=== PATIENT | female | born 1935 | race Caucasian/White ===

== ENCOUNTER 2017-08-13 17:19 | Emergency (ER) | payer MEDICARE, OTHER ==
[2017-08-13] MEDS ORDERED: Clindamycin HCl 150 MG Cap PO ONE (19:11)
--- NOTE | 2017-08-16 09:24 | ER ---
DATE SEEN: 08/13/2017 TIME SEEN: The patient was seen at 1730 hours. HISTORY OF PRESENT ILLNESS: This 82-year-old presents with a history of soreness on the right eye. I was called by Alexis Vallejo, the nurse practitioner, in the clinic this afternoon because he was concerned about potential periorbital cellulitis. She had mild recent confusion, red eye, and this has been present since 08/11/2017. She complained of mild sore throat on 08/08/2017. This was accompanied by slight cough. She has trace of pain with moving her eye [id number]. Does not have any intra-ocular pain. Denies any change in vision. PAST MEDICAL HISTORY: Significant for dementia - cognitive impairment; carcinoid resection; bladder cancer resection; varicose vein prominence; cerebrovascular disease - possible mini strokes, but not documented paresis or weakness; dysthymia; depression; restless legs; status post appendectomy and cholecystectomy; RONALD-BSO; hypertension; and fibromyalgia. REVIEW OF SYSTEMS: HEENT: Negative. Denies compromised vision. Not had cataract surgery. Denies difficulty swallowing. She is edentulous. No history of carotid artery disease or neck discomfort or neck pain. CARDIORESPIRATORY: Negative. No chest pain. No irregular heartbeat. No shortness of breath, except she gets mild shortness of breath and dyspnea on exertion. GI: No ev of acid peptic disease. She is noted to have ulcers. She has mild reflux. No constipation, blood in the stool, black tarry stool, or change of bowels normal. No incontinence of urine. She has this controlled by solifenacin, so she has mild incontinence, but this is controlled with this medicine. PSYCHOLOGIC: She lives alone. Has 1 daughter. No other helpers or people to check and the daughter checks on her frequently. The daughter is her sole caregiver. She is not in assisted living. Review of systems is otherwise negative. PHYSICAL EXAMINATION: VITAL SIGNS: Blood pressure 123/71, heart rate 93 and regular, respirations 18, oxygen saturation 93%. GENERAL: The patient is mildly overweight. Sitting in a wheelchair. She gets about using a wheelchair. She is not cognitively intact. She asks inappropriate questions and does not respond to questions when asked. I did not do a full mini-mental status, but has compromised moderate dementia. HEENT: On face examination, she has traumatic erythema and mild swelling in the right lower orbit. Sclerae are injected. Pupils do react to light. EOMs are normal. No pain with moving her eyes. She has had trace discomfort. Palpation of the eyes is without pain. Pharynx is without abnormality. Gag in place. Tongue, uvula midline. NECK: No bruits. No masses. No thyromegaly. No tracheal deviation or tug. LUNGS: Clear without rales, rhonchi, or wheezes. HEART: S1, S2. No irregular rate and rhythm. ABDOMEN: Soft. No guarding. No abdominal discomfort. She has infraumbilical scar that is healed. No hernia demonstrated. EXTREMITIES: Lower extremities, mild peripheral neuropathy sensitivity to palpation. Trace of edema. Dorsalis pedis intact. NEUROLOGIC: Deep tendon reflexes hypoactive, upper and lower extremities. Cranial nerves 2 through 12 intact. Hearing, decreased. Vision is slightly decreased with her glasses. Gait not tested. DIAGNOSTIC DATA: CAT scan was performed. There was infraorbital preseptal inflammation. There is no evidence for orbital cellulitis. Cristel ahs a mild maxillary-sinus involvement with air-fluid levels and cyst demonstrated, more notably in the right maxillary . Lab work was obtained at the clinic. She had 12,000 white count with 65 PMNs. Hemoglobin was negative. Chest x-ray was negative in the clinic. ASSESSMENT: Preseptal cellulitis, dermis and skin. PLAN: Be treated with clindamycin 300 mg t.i.d. for 7 days. Tylenol and ibuprofen as needed for pain. Warm moist packs 4 times a day. Follow up with the doctor in 7 days or earlier if worse or increased pain or discomfort. Daughter will have to be more vigilant about attending to the patient's needs to make sure she gets medicine. Apparently, this is a difficulty. If necessary, she may need to be hospitalized, but this is an extraordinary expense for someone, who could be helped by home health care. Daughter could enroll home health care to facilitate care if necessary. The Social Service is not available today for this discussion, but that is something could be arranged and discussed with the social welfare administrator on Wednesday. OTHER DIAGNOSES: 1. Dementia. 2. Borderline capability to manage herself at home. 3. Hypertension. 4. Restless legs. 5. Urine incontinence, stabilized with solifenacin. 6. Decreased hearing. 7. Status post appendectomy, cholecystectomy, bladder cancer treatment. 8. Status post left wrist fracture. 9. Obesity, 12 pounds loss in the last month or so. 10.Fibromyalgia with generalized lower back discomfort that is baseline. /[id number] DAMARIS/SADI MTDD
== END 2017-08-13 19:30 | disposition home or self-care (01) ==
LOC: FB.ED 17:19
DX: L03.213 Periorbital cellulitis (principal); F03.90 Unspecified dementia, unspecified severity, without behavioral disturbance, psychotic disturbance, mood disturbance, and anxiety; E66.9 Obesity, unspecified; M79.7 Fibromyalgia; Z68.41 Body mass index [BMI] 40.0-44.9, adult; I10 Essential (primary) hypertension; R32 Unspecified urinary incontinence; Z90.49 Acquired absence of other specified parts of digestive tract
CPT/HCPCS: 70486; 99283; A9270

== ENCOUNTER 2017-10-01 02:23 | Inpatient (IN) | payer MEDICARE, OTHER ==
--- NOTE | 2017-10-01 04:02 | EDM.PDOC ---
ED HPI GENERAL MEDICAL PROBLEM - General Chief Complaint: General Stated Complaint: CONFUSION Time Seen by Provider: 10/01/17 03:50 Source of Information: Reports: Patient History Limitations: Reports: No Limitations - History of Present Illness INITIAL COMMENTS - FREE TEXT/NARRATIVE: Patient has a history of dementia and lives alone. She was found by police walking outside approximately two miles from home. Apparently this also occurred @1 week ago. The patient has no memory of either of these events. She presents to the ER with her daughter who states she was recently started on Aricept. Denies headache, chest pain, or shortness of breath. Onset: Today - Related Data Allergies Allergy/AdvReac Type Severity Reaction Status Date / Time codeine Allergy Abdominal Verified 08/13/17 17:41 Pain levofloxacin [From Levaquin] Allergy Abdominal Verified 08/13/17 17:41 Pain Home Meds: Home Meds Acetaminophen [Tylenol Extra Strength] 1,000 mg PO BID 08/13/17 [History] Cholecalciferol (Vitamin D3) [Vitamin D3] 5,000 units PO DAILY 08/13/17 [History ] Cyanocobalamin (Vitamin B-12) [B-12] 1,000 mcg PO DAILY 08/13/17 [History] Lisinopril 10 mg PO DAILY 08/13/17 [History] Mirtazapine 15 mg PO BEDTIME 08/13/17 [History] [place]-3 Fatty Acids [Maxepa] 1,000 mg PO BID 08/13/17 [History] Potassium Chloride 20 meq PO TID 08/13/17 [History] Solifenacin [Vesicare] 5 mg PO DAILY 08/13/17 [History] Donepezil [Aricept] 5 mg PO DAILY 10/01/17 [History] Past Medical History Cardiovascular History: Reports: Hypertension Gastrointestinal History: Reports: Hemorrhoids Genitourinary History: Reports: Renal Calculus, UTI, Recurrent SENIOR MEDIA DIRECTOR History: Reports: Neurological History: Reports: Other (See Below) Other Neuro History: Confusion. Psychiatric History: Reports: Dementia Endocrine/Metabolic History: Reports: Obesity/BMI 30+ Oncologic (Cancer) History: Reports: Bladder, Other (See Below) Other Oncologic History: Small bowel. - Past Surgical History GI Surgical History: Reports: Cholecystectomy, Other (See Below) Other GI Surgeries/Procedures: Bowel resection for CA. Female Surgical History: Reports: Hysterectomy Endocrine Surgical History: Reports: Thyroidectomy Social & Family History - Family History Family Medical History: Noncontributory - Tobacco Use Smoking Status *Q: Never Smoker - Caffeine Use Caffeine Use: Reports: Coffee - Alcohol Use Alcohol Use History: No ED ROS GENERAL - Review of Systems Review Of Systems: ROS reveals no pertinent complaints other than HPI. ED EXAM, GENERAL - Physical Exam Exam: See Below Exam Limited By: No Limitations General Appearance: Alert, WD/WN, No Apparent Distress Eye Exam: Bilateral Eye: EOMI, PERRL Ears: Normal External Exam Nose: Normal Inspection Throat/Mouth: Normal Inspection, No Airway Compromise Head: Atraumatic, Normocephalic Neck: Full Range of Motion Respiratory/Chest: No Respiratory Distress, Lungs Clear, Normal Breath Sounds Cardiovascular: Regular Rate, Rhythm, No Murmur GI/Abdominal: No Distention Back Exam: Full Range of Motion Extremities: Normal Range of Motion Neurological: Alert, No Motor/Sensory Deficits, Other (Oriented to person and place, not to time) Psychiatric: Normal Affect, Normal Mood Skin Exam: Warm, Dry, Intact EKG INTERPRETATION EKG Date: 10/01/17 Time: 04:04 Rhythm: NSR Rate (Beats/Min): 91 [place]: Normal P-Wave: Present QRS: Normal ST-T: Normal QT: Prolonged VA/PQ Interval: 179 Course - Vital Signs Last Recorded V/S: Last Vital Signs Temp 36.6 C 10/01/17 02:45 Pulse 108 H 10/01/17 02:45 Resp 18 10/01/17 02:45 BP 114/61 10/01/17 02:45 Pulse Ox 95 10/01/17 02:45 - Orders/Labs/Meds Orders: Active Orders 24 hr Category Date Time Status UA W/MICROSCOPIC [URIN] Stat Lab 10/01/17 02:50 Ordered Labs: Laboratory Tests 10/01/17 10/01/17 10/01/17 Range/Units 02:50 03:12 03:12 WBC 12.5 H (4.5-12.0) X10-3/uL RBC 4.47 (3.23-5.20) x10(6)uL Hgb 13.7 (11.5-15.5) g/dL Hct 40.3 (30.0-51.3) % MCV 90.2 (80-96) fL MCH 30.7 (27.7-33.6) pg MCHC 34.1 (32.2-35.4) g/dL RDW 12.4 (11.5-15.5) % Plt Count 432 H (125-369) X10(3)uL MPV 8.1 (7.4-10.4) fL Add Manual Diff Yes Neutrophils % (Manual) 70 (46-82) % Band Neutrophils % 5 (0-6) % Lymphocytes % (Manual) 15 (13-37) % Monocytes % (Manual) 8 (4-12) % Eosinophils % (Manual) 2 (0-5) % Sodium 139 (135-145) mmol/L Potassium 4.0 (3.5-5.3) mmol/L Chloride 102 (100-110) mmol/L Carbon Dioxide 26 (21-32) mmol/L BUN 20 H (7-18) mg/dL Creatinine 1.3 H (0.55-1.02) mg/dL Est Cr Clr Drug Dosing 33.00 mL/min Estimated GFR (MDRD) 39 L (>60) BUN/Creatinine Ratio 15.4 (9-20) Glucose 116 (80-116) mg/dL Calcium 9.4 (8.6-10.2) mg/dL Total Bilirubin 0.4 (0.1-1.3) mg/dL AST 19 (5-25) IU/L ALT 26 (12-36) U/L Alkaline Phosphatase 135 H (56-112) IU/L Total Protein 8.1 H (6.0-8.0) g/dL Albumin 3.3 (3.2-4.6) g/dL Globulin 4.8 g/dL Albumin/Globulin Ratio 0.7 Urine Color Yellow (YELLOW) Urine Appearance Slightly cloudy (CLEAR) Urine pH 6.0 (5.0-6.5) Ur Specific [place] 1.010 (1.010-1.025) Urine Protein Trace (NEGATIVE) mg/dL Urine Glucose (UA) Normal (NEGATIVE) mg/dL Urine Ketones Negative (NEGATIVE) mg/dL Urine Occult Blood Negative (NEGATIVE) Urine Nitrite Negative (NEGATIVE) Urine Bilirubin Negative (NEGATIVE) Urine Urobilinogen Normal (NEGATIVE) mg/dL Ur Leukocyte Esterase Negative (NEGATIVE) Urine RBC 0-5 (0) Urine WBC 0-5 (0) Ur Squamous Epith Cells Few H (NS,R,O) Urine Bacteria Few H (NS) Urine Mucus Few H (NS) - Re-Assessments/Exams Free Text/Narrative Re-Assessment/Exam: 10/01/17 04:11 The patient will need placement in an assisted living facility or usp. Her current living environment is unsafe. Daughter states she is unable to stay with her at this time. She therefore will be admitted to [facility], will consult secondary social studies teacher for placement. Departure - Departure Time of Disposition: 04:14 Disposition: Refer to Observation Condition: Good Clinical Impression: At risk for unsafe behavior Dementia Qualifiers: Dementia type: unspecified type Dementia behavioral disturbance: with behavioral disturbance Qualified Code(s): F03.91 - Unspecified dementia with behavioral disturbance - Discharge Information *PRESCRIPTION DRUG MONITORING PROGRAM REVIEWED*: No *COPY OF PRESCRIPTION DRUG MONITORING REPORT IN PATIENT DANIS: Not Applicable Referrals: Ishaan Thornton MD [Primary Care Provider] - - My Orders Last 24 Hours: My Active Orders 10/01/17 02:50 UA W/MICROSCOPIC [URIN] Stat - Assessment/Plan Last 24 Hours: My Active Orders 10/01/17 02:50 UA W/MICROSCOPIC [URIN] Stat
[2017-10-01] MEDS ORDERED: Sodium Chloride 0.9% 10 ML Syringe FLUSH PRN (04:08)
[2017-10-01] MEDS ORDERED: Sodium Chloride 0.9% 1,000 ML IV SCH (04:15)
[2017-10-01] MEDS: Sodium Chloride 0.9% 1,000 ML IV SCH ×2 (05:10→16:44)
[2017-10-01] MEDS: Acetaminophen 325 MG Tab PO PRN ×2 (05:12→21:49)
[2017-10-01] MEDS: Potassium Chloride 20 MEQ Tab.ER PO SCH ×3 (09:13→20:16)
[2017-10-01] MEDS: Lisinopril 10 MG Tab PO SCH (09:13)
--- NOTE | 2017-10-01 13:41 | PN ---
DATE SEEN: 10/01/2017 SUBJECTIVE: Cristel Love is an 82-year-old, female seen today. [place] [facility]. Daughter in the area. She presented with acute confusional episode, was 2 miles from her home, and was disorientated. She was seen in [facility] and admitted to hospital for treatment. DIAGNOSTIC STUDIES: Diagnostic studies of significance, white count 12,500, hemoglobin 13.7, and 432,000 platelets. Electrolytes significant for GFR of 39, BUN 20, and creatinine 1.3, mildly elevated alkaline phosphatase and urine without pathologic findings. No CT scan was performed. Overnight has been without complaints. Vital signs have been stable. Discharge planning in place. OBJECTIVE: VITAL SIGNS: 143/86, 144/86, 14, 98 degrees F, and 98% O2 saturation. GENERAL: Bright, alert, and awake, orientation was in question. NECK: Benign. Thyroid small. CHEST: Clear in all lung yuan. HEART: Regular without ectopy or murmur. ABDOMEN: Benign. NEURO: No focal neurologic event. Acute confusional state. PLAN: We will obtain CT head just for completeness, complementary care, and well being. Discharge plans under consideration. /[id number] SAHARA/SADI
--- NOTE | 2017-10-01 14:51 | CT ---
INDICATION: Acute confusion, wandering about, dementia. CT HEAD WITHOUT CONTRAST: Serial contiguous 2.5 and 5 mm sections were obtained through the brain without contrast, 10/01/2017, and compared with 12/24. Total exam DLP = 950.31 mGy-cm. There is some minimal frothy material in a left posterior ethmoidal air cell, which may represent a retention cyst. A similar finding is noted in the posterolateral aspect of the left sphenoidal air cell. Otherwise the paranasal sinuses were well-aerated. The mastoid air cells are unchanged and fairly well- aerated. Diminished bone density is noted, compatible with osteoporosis, with no other cranial abnormality. No significant shift of midline structures was seen. Ventricles are slightly prominent, as are sulci, compatible with a minimal degree of atrophy for this patients age. Calcifications are noted in the internal carotid arteries and the right vertebral artery. Progressive white matter changes are noted, compatible with moderate degree of microvascular disease, although other cause of leukoencephalopathy cannot be excluded. No bleeding site or hematoma was seen. IMPRESSION: 1. No acute intracranial abnormality. 2. Progressive white matter disease is noted compatible with moderate microvascular disease type changes - other cause of leukoencephalopathy cannot be excluded. 3. Cerebrovascular disease with arterial calcifications noted. 4. Minimal findings in paranasal sinuses. MTDD
[2017-10-01] MEDS: Mirtazapine 15 MG Tab PO SCH (20:17)
[2017-10-01] MEDS: Donepezil 5 MG Tab PO SCH (20:17)
[2017-10-02] MEDS: Sodium Chloride 0.9% 1,000 ML IV SCH (02:11)
[2017-10-02] MEDS: Potassium Chloride 20 MEQ Tab.ER PO SCH ×3 (09:05→18:41)
[2017-10-02] MEDS: Lisinopril 10 MG Tab PO SCH (09:07)
[2017-10-02] MEDS: Acetaminophen 325 MG Tab PO PRN ×2 (09:53→17:13)
[2017-10-02] MEDS: Mirtazapine 15 MG Tab PO SCH (21:17)
[2017-10-02] MEDS: Donepezil 5 MG Tab PO SCH (21:17)
[2017-10-03] MEDS: Potassium Chloride 20 MEQ Tab.ER PO SCH ×3 (08:35→19:15)
[2017-10-03] MEDS: Lisinopril 10 MG Tab PO SCH (08:35)
[2017-10-03] MEDS: Mirtazapine 15 MG Tab PO SCH (21:07)
[2017-10-03] MEDS: Donepezil 5 MG Tab PO SCH (21:07)
[2017-10-04] MEDS: Acetaminophen 325 MG Tab PO PRN (02:13)
--- NOTE | 2017-10-04 08:28 | PN ---
DATE SEEN: 10/02/2017 SUBJECTIVE: Cristel Love is an 82-year-old female seen today for followup. Had been living in [facility] in [place]. Wandered away from home some distance. Brought to [place]. Recent intervention with Aricept. Clearly dementia problematic issue, being alone not an opportunity. Planning readjustment of living situation to [facility] in [place]. She voices no specific complaints or concerns. CT performed yesterday revealed some aging changes but nothing acute or problematic. Other laboratory studies were unremarkable. CBC within normal limits. Electrolytes satisfactory. GFR reduced at 39 but stable and urine free of infection. OBJECTIVE: VITAL SIGNS: 36.7, 130/81, 16, 96%, respirations 18. GENERAL: Cheerful as always. NECK: Benign. Thyroid small. CHEST: Clear in all lung yuan. HEART: Regular without ectopy or murmur. ABDOMEN: Benign. ASSESSMENT: Progressive dementia, at risk as a fragile adult. PLAN: We will continue present therapy. Discontinue IV, complementary care and well being, no changes in medications or care. /[id number] SAHARA/SADI
--- NOTE | 2017-10-04 08:31 | PN ---
DATE SEEN: 10/03/2017 SUBJECTIVE: Cristel Love is an 82-year-old female, admitted with wandering behavior. At 0500 hours in the morning, away from home and no shoes, wearing pajamas, 2 miles from home. Progressive decline intellectually. Family has spoken with people in the [facility]. Next plan is upcoming plan. MEDICATIONS: Upon review: 1. Aricept. 2. Lisinopril. 3. Remeron. 4. Potassium. 5. VESIcare on board. OBJECTIVE: VITAL SIGNS: 37.1, 132/83, O2 saturation 98%, respirations 12. GENERAL: Bright and alert. NECK: Benign. Thyroid small. CHEST: Clear in all lung yuan. HEART: Regular without ectopy or murmur. ABDOMEN: Benign. ASSESSMENT: At risk, vulnerable adult. PLAN: As noted above. /[id number] SAHARA/SADI
[2017-10-04] MEDS: Potassium Chloride 20 MEQ Tab.ER PO SCH (08:34)
[2017-10-04] MEDS: Lisinopril 10 MG Tab PO SCH (08:34)
--- NOTE | 2017-10-04 15:06 | DISCH ---
DISCHARGE DATE: 10/04/2017 HOSPITAL COURSE: Cristel Love is an 82-year-old female, admitted with an acute neurological and troubling event. At 0200 hours in the morning, she was found wandering [address] of [address] She was in her pajamas and no shoes. Progressive decline intellectually. On admission, she was found to be intact neurologically, though memory and circumstances difficult. Laboratory studies were all without complication. Normal CBC. Normal electrolytes. GFR 39. Urine was clear. CT head revealed no acute intracranial process, progressive white matter disease consistent with microvascular disease and arterial calcifications. During her stay, it was apparent that living alone was not available. Ambulation skills were good and interaction with peers was not a conflictual issue. It was decided that she would be admitted to [facility] for further care and long-term management. SURGICAL PROCEDURES: None. CONSULTATIONS: None. Addendum: 40-minute discharge exam, planning and transfer to [place]. /[id number] /MODL ADDENDUM: The patient will make appointment in three weeks, Dr. Thornton, provider of record. /[id number] /MODL
== END 2017-10-04 10:52 | disposition home or self-care (01) | DRG 884 ==
LOC: FB.ED 02:23 → FB.MS 04:21 → OBSVTOIN 12:28
PROVIDERS: ADMIT Emergency Medicine; ATTEND Family Medicine
DX: F03.91 Unspecified dementia, unspecified severity, with behavioral disturbance (principal); Z66 Do not resuscitate; Z91.83 Wandering in diseases classified elsewhere; I10 Essential (primary) hypertension; Z91.89 Other specified personal risk factors, not elsewhere classified; R41.0 Disorientation, unspecified; Z87.440 Personal history of urinary (tract) infections; Z85.51 Personal history of malignant neoplasm of bladder; Z85.068 Personal history of other malignant neoplasm of small intestine; Z90.49 Acquired absence of other specified parts of digestive tract; Z90.710 Acquired absence of both cervix and uterus; Z88.1 Allergy status to other antibiotic agents; Z88.5 Allergy status to narcotic agent
CPT/HCPCS: 36415; 80053; 81001; 85025; 93005; 99284 ×2; A9270 ×4; J7030; 70450